=== PATIENT | female | born 2000 | race African-American/Black ===

== ENCOUNTER 2022-06-16 14:29 | Emergency (ER) | payer SELFPAY ==
[2022-06-16 14:36] VITALS: BP 121/73
[2022-06-16] MEDS ORDERED: AMOX1TAB16 MT (14:53)
== END 2022-06-16 15:15 | disposition home or self-care (01) ==
LOC: ER 14:29
DX: J03.90 Acute tonsillitis, unspecified (principal)
CPT/HCPCS: 99281

== ENCOUNTER 2022-06-23 19:25 | Emergency (ER) | payer SELFPAY ==
[~2022-06-23] VITALS: Ht 162.6 cm; Wt 63.0 kg
[~2022-06-23 19:25] MED LIST: AMOX1TAB16 MT
[2022-06-23 19:43] VITALS: BP 117/62
[2022-06-23 19:57] LABS: CLARITY URINE TURBID (CLEAR); COLOR URINE YELLOW (YELLOW); KETONES URINE NEGATIVE (NEGATIVE); LEUKOCYTE ESTERASE URINE 3+ (NEGATIVE); NITRITE URINE NEGATIVE (NEGATIVE); OCCULT BLOOD URINE 2+ (NEGATIVE); PROTEIN URINE 2+ (NEGATIVE); SPECIFIC GRAVITY URINE 1.017 (1.005-1.030); UROBILINOGEN URINE 0.2 E.U./dL (0.2-1.0)
[2022-06-23] MEDS ORDERED: DIF15 MT (21:54)
[2022-06-23] MEDS ORDERED: NITR-87 MT (21:54)
[2022-06-26 04:10] LABS: NEISSERIA GONORRHOEAE NAA Negative (Negative)
== END 2022-06-23 22:57 | disposition home or self-care (01) ==
LOC: ER 19:25
DX: N39.0 Urinary tract infection, site not specified (principal); A64 Unspecified sexually transmitted disease
CPT/HCPCS: 81003; 81025; 87077; 87186; 87491; 87591; 99283

== ENCOUNTER 2023-08-29 17:32 | Emergency (ER) | payer MEDICAID ==
[~2023-08-29] VITALS: Ht 165.1 cm; Wt 58.0 kg
[~2023-08-29 17:32] MED LIST changes: +DIF15 MT; +NITR-87 MT
[2023-08-29 17:35] VITALS: O2SAT 100
[2023-08-29 20:37] LABS: BASOPHILS % 0.4 % (0.0-2.0); CHLORIDE 106 mEq/L (98-107); EOSINOPHILS % 0.2 % (0.0-5.0); HEMATOCRIT. 40.9 % (36.0-48.0); HEMOGLOBIN. 13.8 g/dL (12.0-16.0); LYMPHOCYTES % 30.3 % (20.0-50.0); MEAN CORPUSCULAR HEMOGLOBIN 32.7 pg (28.0-32.0); MEAN CORPUSCULAR HGB CONC 33.8 g/dL (31.0-37.0); MEAN CORPUSCULAR VOLUME 96.8 fL (81.0-99.0); MEAN PLATELET VOLUME 9.8 fl (7.4-10.4); MONOCYTES % 9.6 % (2.0-8.0); NEUTROPHILS % 59.5 % (40.0-76.0); PLATELET 241 x1000/uL (130-400); POTASSIUM 4.3 mEq/L (3.5-5.1); RED BLOOD CELL COUNT 4.23 mill/uL (4.2-5.4); RED CELL DISTRIBUTION WIDTH 12.3 % (11.6-14.6); SODIUM 137 mEq/L (136-145); WHITE BLOOD COUNT 5.7 x1000/uL (4.5-11.0)
[2023-08-29 20:38] LABS: CARBON DIOXIDE 27 mEq/L (21-32)
[2023-08-29 20:39] LABS: CALCIUM 9.1 mg/dL (8.7-10.4)
[2023-08-29 20:43] LABS: CREATININE 0.7 mg/dL (0.6-1.0); GLUCOSE 75 mg/dL (70-105)
[2023-08-29 20:46] LABS: UREA NITROGEN BLOOD < 5 mg/dL (9-23)
[2023-08-29] MEDS ORDERED: PNV1TABL50 PO (20:59)
[2023-08-29 21:25] VITALS: BP 121/69; PULSE 74; RESP 20; TEMP 98.1
== END 2023-08-29 21:25 | disposition home or self-care (01) ==
LOC: ER 17:32
DX: O26.891 Other specified pregnancy related conditions, first trimester (principal); Z3A.01 Less than 8 weeks gestation of pregnancy
CPT/HCPCS: 36415; 76801; 80048; 81025; 84702; 85025; 86850; 86900; 99284